=== PATIENT | male | born 1975 | race Caucasian/White ===

== ENCOUNTER 2021-01-08 12:17 | Emergency (ER) | payer BC, SELFPAY ==
[2021-01-08 12:28] VITALS: BP 121/89; PULSE 109; RESP 18; TEMP 36.6; O2SAT 98
--- NOTE | 2021-01-08 12:45 | ED.URI ---
HPI - URI/Sore Throat General Chief Complaint: Upper Respiratory Infection Stated Complaint: Body Aches,Headache,Chills,Cough Source: patient and RN notes reviewed Limitations: no limitations History of Present Illness HPI Narrative: The unvaccinated patient, ex-smoker/nondrinker yet with previous noncompliant SVT cardiac history, presents with chills. Patient states he has a shorter 1 day history of chills, diarrhea x2-3, myalgias with headache and shoulder pains. No fever measured, CP, nausea/vomiting, S OB, rash. [id number] testing for Covid antigen is strongly/early positive Related Data Allergies Allergy/AdvReac Type Severity Reaction Status Date / Time No Known Allergies Allergy Verified 01/08/21 12:46 Review of Systems Review of Systems: General/Constitutional: No weight loss,fever Eyes: N0: Redness,discharge Ears/Nose/Throat: No: Epistaxis,ear discharge Respiratory: Denies: Hemoptysis Gastrointestinal: No Vomiting, Bleeding-rectal Skin: No Lumps, eruption Neurologic: No Focal Weakness,Sz Hematologic: Denies: Petechiae/Purpura All Other Systems: Reviewed and Negative [facility] Past Medical History Medical History (Updated 01/08/21 @ 12:51 by Serge Ashford MD) History of PSVT (paroxysmal supraventricular tachycardia) HLD (hyperlipidemia) IFG (impaired fasting glucose) PAT (paroxysmal atrial tachycardia) QT prolongation RLS (restless legs syndrome) Surgical History Surgical History History of cardiac radiofrequency ablation History of varicose vein stripping Hx of decompression of ulnar nerve Hx of fracture of wrist s/p L ORIF Family History Family History Mother Diabetes mellitus Family history of malignant neoplasm of kidney Social History Social History Smoking packs per day: 1 Smoking cigarettes per day: 20.0 Years smoked: 15 Smoking pack-years: 15.00 Smoking status: Former smoker Tobacco type: cigarettes Second hand tobacco smoke exposure: Yes Smoking end date: 04/15/07 Alcohol intake: current Drinks per week: 9 Substance use: current Substance use type: marijuana Gender identity (if verbalized by the patient): Male Comments At time of signature, agree with nursing past medical, surgical, social and family history. There is no relevant family history pertinent to the presenting complaint Exam Narrative: General Appearance: Well appearing, Well nourished EYE: PERRLA, Conjunctiva clear Ears: Auditory canal normal Nose: Rhinorrhea, Mucousal erythema Mouth/Throat: MM moist, Neck: Supple, Respiratory: No respiratory distress, airway patent Cardiovascular: RRR, No JVD Musculoskeletal: Non tender, Normal strength Skin: Warm, Dry Neurological: A&O x3, CN II-XII intact Psychiatric: Normal mood, Normal affect The patient agrees, in light of health emergency- in my medical judgement, only a personal chat was preferable to fully undress & examine the patient exhibiting potential COVID symptoms, in order to limit risk of infection. Course Vital Signs Vital signs: Vital Signs Temperature 97.9 F 01/08/21 12:28 Pulse Rate 109 H 01/08/21 12:28 Respiratory Rate 18 01/08/21 12:28 Blood Pressure 121/89 01/08/21 12:28 Pulse Oximetry 98 01/08/21 12:28 Temperature 97.9 F 01/08/21 12:28 Pulse Rate 109 H 01/08/21 12:28 Respiratory Rate 18 01/08/21 12:28 Blood Pressure 121/89 01/08/21 12:28 Pulse Oximetry 98 01/08/21 12:28 MDM - URI/Sore Throat Lab Data Labs: Lab Results 01/08/21 Range/Units 12:30 POC SARS CoV-2 Ag Positive (Negative) Discharge Plan Discharge Clinical Impression: COVID-19 Patient Disposition: Home, Self-Care Condition: Stable Instructions: COVID-19 (Coronavirus Disease 2019) (ED) Additional Instruct
== END 2021-01-08 13:00 | disposition home or self-care (01) ==
PROVIDERS: Emergency Provider Emergency Medicine; PCP Family Medicine
DX: U07.1 COVID-19 (principal); E78.5 Hyperlipidemia, unspecified; G25.81 Restless legs syndrome; Z87.891 Personal history of nicotine dependence
CPT/HCPCS: 87426; 99213; C9803; G0463

== ENCOUNTER 2021-03-16 11:08 | Emergency (ER) | payer OTHER, BC, SELFPAY ==
[2021-03-16 11:47] VITALS: BP 134/90; PULSE 90; RESP 18; TEMP 36.5; O2SAT 100
--- NOTE | 2021-03-16 12:13 | ED.LOWEXIN ---
HPI - Extremity Injury (Lower) General Chief Complaint: Extremity Injury, Lower Stated Complaint: swollen lt ankle/work related Source: patient and RN notes reviewed Limitations: no limitations History of Present Illness HPI Narrative: The patient, on minimal meds previously overweight, presents with left foot pain. 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 No redness, injury, prior joint problems/arthropathies, calf pain Related Data Allergies Allergy/AdvReac Type Severity Reaction Status Date / Time No Known Allergies Allergy Verified 03/16/21 12:03 Review of Systems Review of Systems: General/Constitutional: No weight loss,fever Eyes: N0: Redness,discharge Ears/Nose/Throat: No: Epistaxis,ear discharge Respiratory: Denies: Hemoptysis Gastrointestinal: No Vomiting, Bleeding-rectal Skin: No Lumps, eruption Neurologic: No Focal Weakness,Sz Hematologic: Denies: Petechiae/Purpura Psychiatric: No: Suicida ideationl All Other Systems: Reviewed and Negative [facility] Past Medical History Medical History (Updated 03/16/21 @ 12:29 by Serge Ashford MD) History of PSVT (paroxysmal supraventricular tachycardia) HLD (hyperlipidemia) IFG (impaired fasting glucose) Obesity PAT (paroxysmal atrial tachycardia) QT prolongation RLS (restless legs syndrome) Surgical History Surgical History History of cardiac radiofrequency ablation History of varicose vein stripping Hx of decompression of ulnar nerve Hx of fracture of wrist s/p L ORIF Family History Family History Mother Diabetes mellitus Family history of malignant neoplasm of kidney Social History Social History Smoking packs per day: 1 Smoking cigarettes per day: 20.0 Years smoked: 15 Smoking pack-years: 15.00 Smoking status: Never smoker Tobacco type: cigarettes Second hand tobacco smoke exposure: Yes Smoking end date: 04/15/07 Alcohol intake: current Drinks per week: 9 Substance use: current Substance use type: marijuana Gender identity (if verbalized by the patient): Male Comments At time of signature, agree with nursing past medical, surgical, social and family history. There is no relevant family history pertinent to the presenting complaint Exam Narrative: General Appearance: Well nourished, No distress, conjunctiva clear Mouth/Throat: Normal appearing, Normal lips,Neck: Supple Respiratory: Airway patent, No respiratory distress MS-ankle: Normal strength (mostly intact, limited flexion/extension by pain), Tenderness (posterior laterally, with mild decreased ROM), scant swelling (laterally), Other (no anterior drawer, no collateral laxity, ++ Achilles tenderness, no fifth MT tenderness, gastroc nontender/negative Homans) Skin: Warm, Dry, Normal color Neurological: A&O x3, Normal affect Course Vital Signs Vital signs: Vital Signs Temperature 97.7 F 03/16/21 11:47 Pulse Rate 90 03/16/21 11:47 Respiratory Rate 18 03/16/21 11:47 Blood Pressure 134/90 03/16/21 11:47 Pulse Oximetry 100 03/16/21 11:47 Temperature 97.7 F 03/16/21 11:47 Pulse Rate 90 03/16/21 11:47 Respiratory Rate 18 03/16/21 11:47 Blood Pressure 134/90 03/16/21 11:47 Pulse Oximetry 100 03/16/21 11:47 Discharge Plan Discharge Clinical Impression: Achilles tendinitis Qualifiers: Laterality: left Qualified Code(s): M76.62 - Achilles tendinitis, left leg Patient Disposition: Home, Self-Care Condition: Stable Instructions: Achilles Tendinitis (ED) Prescriptions: New tramadol 50 mg tablet 50 - 75 mg PO Q6H PRN (Reason: pain) Qty: 20 RF: 0
== END 2021-03-16 12:16 | disposition home or self-care (01) ==
PROVIDERS: Emergency Provider Emergency Medicine; PCP Family Medicine
DX: M76.62 Achilles tendinitis, left leg (principal); F17.210 Nicotine dependence, cigarettes, uncomplicated
CPT/HCPCS: 99213; G0463

== ENCOUNTER 2022-10-05 01:02 | Day surgery (SDC) | payer BC, SELFPAY ==
[2022-09-27 09:27] VITALS: BMI 32.3
--- NOTE | 2022-10-04 12:13 | WPDANESEPPF ---
Anes - Initial Pre Proc Eval Procedure: Operation Date: 10/05/22 10:30 Proposed Procedures p Esophagogastroduodenoscopy & Screening Colonoscopy - Naveed Pozo MD Date/Time: 10/04/22 12:13 Surgeon: Naveed Pozo MD Pre Op Diagnosis: neoplasm screening Patient Data Age: 47 Gender: M Height: 1.78 m Weight: 102.3 kg Allergies Allergy/AdvReac Type Severity Reaction Status Date / Time No Known Allergies Allergy Verified 10/05/22 09:27 Home Medications Medication Instructions Recorded Confirmed Type No Home Medications 08/16/22 09/27/22 History Patient hx anesthesia problems: none Family hx anesthesia problems: none Results Review: All pre-operative results and documents have been reviewed as part of the pre-operative evaluation. [facility] Past Medical History Medical History Atrial fibrillation History of PSVT (paroxysmal supraventricular tachycardia) HLD (hyperlipidemia) Hypertension IFG (impaired fasting glucose) Obesity PAT (paroxysmal atrial tachycardia) QT prolongation RLS (restless legs syndrome) Surgical History Surgical History History of cardiac radiofrequency ablation History of varicose vein stripping Hx of decompression of ulnar nerve Hx of fracture of wrist s/p L ORIF Family History Family History Mother Diabetes mellitus Family history of malignant neoplasm of kidney Social History Social History Smoking packs per day: 1 Smoking cigarettes per day: 20.0 Years smoked: 14 Smoking pack-years: 14.00 Smoking status: Former smoker Tobacco type: cigarettes Second hand tobacco smoke exposure: Yes Smoking end date: 04/15/07 Alcohol intake: current Drinks per week: 9 Substance use: current Substance use type: marijuana Other substance usage details: daily Living arrangements: with family Occupation/Education: occupation Gender identity (if verbalized by the patient): Male Spiritual care concerns: No Anes - Eval Final PreProcedure Day of Procedure 10/04/22 12:13 Patient weight: obese Heart: regular rate and rhythm Lungs: clear to auscultation Airway: Mallampati scale class II Neurological: alert and oriented Last oral intake: >/= 8 hours ASA classification: III Emergent: no Anesthetic plan: proceed Anesthesia type and monitoring: general GIVS and standard monitoring Results Review: All pre-operative results and documents have been reviewed as part of the pre-operative evaluation. Informed Consent: The patient's anesthetic plan and its attendant risks and benefits were discussed with the patient/family/POA. Questions were solicited and answers provided to the satisfaction of the patient/family/POA.
--- NOTE | 2022-10-04 19:49 | PM.HPGS ---
History of Present Illness History of Present Illness Consent: Risks, benefits, and alternatives have been discussed and questions answered. Patient agrees to proceed with procedure. Chief complaint: neoplasm screening Narrative: Kalia Chavez is a 47 year old male who is referred for colon cancer screening.and investigtion of Dysphagia. For the past year to he would occasionally have food hung up substernally. It would sometimes be there for couple of hours and he would eventually would either expectorate or it would pass. Recently he had a food bolus in his chest for 24 hours. He was not able to drink even water. It does not have chronic heartburn in fact is not on medication reflux Review of Systems Review of Systems: All systems reviewed & are unremarkable except as noted in HPI and below PMFSH Past Medical History Medical History Atrial fibrillation History of PSVT (paroxysmal supraventricular tachycardia) HLD (hyperlipidemia) Hypertension IFG (impaired fasting glucose) Obesity PAT (paroxysmal atrial tachycardia) QT prolongation RLS (restless legs syndrome) Surgical History Surgical History History of cardiac radiofrequency ablation History of varicose vein stripping Hx of decompression of ulnar nerve Hx of fracture of wrist s/p L ORIF Family History Family History Mother Diabetes mellitus Family history of malignant neoplasm of kidney Social History Social History Smoking packs per day: 1 Smoking cigarettes per day: 20.0 Years smoked: 14 Smoking pack-years: 14.00 Smoking status: Former smoker Tobacco type: cigarettes Second hand tobacco smoke exposure: Yes Smoking end date: 04/15/07 Alcohol intake: current Drinks per week: 9 Substance use: current Substance use type: marijuana Other substance usage details: daily Living arrangements: with family Occupation/Education: occupation Gender identity (if verbalized by the patient): Male Spiritual care concerns: No Meds Home Medications and Allergies Home Medications Medication Instructions Recorded Confirmed Type No Home Medications 08/16/22 09/27/22 History Allergies Allergy/AdvReac Type Severity Reaction Status Date / Time No Known Allergies Allergy Verified 10/05/22 09:27 Exam Const: General: alert Orientation/consciousness: patient oriented x3 Resp: Auscultation: clear to auscultation bilaterally Cardio: Rhythm: regular rhythm GI: GI Palp: Yes Soft to palpation and No Tenderness to palpation present (GI) Neuro: General: patient oriented x3 Assessment and Plan Assessment and plan (1) Colon cancer screening: Code(s): Z12.11 - Encounter for screening for malignant neoplasm of colon Status: Acute Assessment and Plan: Colonoscopy with possible biopsy or polypectomy or cautery or injection of substances. (2) Dysphagia: Code(s): R13.10 - Dysphagia, unspecified Status: Acute Assessment and Plan: EGD with possible biopsy or dilatation or cautery.
[2022-10-05 09:27] VITALS: BP 121/84; PULSE 69; RESP 20; TEMP 36.4; O2SAT 99; BMI 32.7
[2022-10-05] MEDS: LACTATED RINGERS 1,000 ML 150 ML IV CONT (09:38)
--- NOTE | 2022-10-05 10:28 | SUR.OPER ---
When bite block was taken out of patient's mouth, by [employer], after completion of EGD, a front tooth came out onto the towel that was underneath patient's head. Patient had yawned a couple times during procedure and had begun to cough at the end, reason as to why the bite block was removed once procedure was completed.
--- NOTE | 2022-10-05 10:43 | SUR.OPER ---
Dr. Pozo and Dr. Cooley notified immediately after tooth was found.
[2022-10-05 10:47] VITALS: BP 119/67; PULSE 82; RESP 15; O2SAT 100
[2022-10-05 10:57] VITALS: BP 112/81; PULSE 77; RESP 20; O2SAT 100
[2022-10-05 11:07] VITALS: BP 114/72; PULSE 78; RESP 18; O2SAT 100
== END 2022-10-05 11:16 | disposition home or self-care (01) ==
PROVIDERS: PCP Family Medicine; Visit Provider Internal Medicine Gastroenterology
PROC: 0DJ08ZZ Inspection of Upper Intestinal Tract, Via Natural or Artificial Opening Endoscopic (ICD-10-PCS; CPT 43235; principal; 2022-10-05 10:30)
DX: Z12.11 Encounter for screening for malignant neoplasm of colon (principal); K22.2 Esophageal obstruction; R13.10 Dysphagia, unspecified; K57.30 Diverticulosis of large intestine without perforation or abscess without bleeding; K21.9 Gastro-esophageal reflux disease without esophagitis; E78.5 Hyperlipidemia, unspecified; I48.91 Unspecified atrial fibrillation; I10 Essential (primary) hypertension; Z87.891 Personal history of nicotine dependence
CPT/HCPCS: 43239; 43249; 45378; 88305; C1726; J2704; J7120